=== PATIENT | male | born 1965 | race Caucasian/White ===

== ENCOUNTER 2020-07-27 17:22 | Emergency (ER) | payer BC ==
[~2020-07-27] VITALS: Ht 180.3 cm; Wt 72.7 kg
[2020-07-27 17:31] VITALS: BP 147/100
--- NOTE | 2020-07-27 17:58 | PHYS DOC ---
Past History Past Medical History: No Pertinent History Past Surgical History: No Surgical History Alcohol Use: None Adult General Chief Complaint Chief Complaint: TOE PROBLEM HPI HPI Patient is a 55-year-old male who presents with left big toe problem. Patient reports dropping household item on nail bed matrix of left big toe. He has no bony abnormalities or other complaints at this time besides mild hematoma in nailbed matrix. This is happened to his contralateral foot in the past and hematoma subsequently caused his toenail to fall off. Relatively asymptomatic patient here today requesting hold be drilled in toenail bed to evacuate hematoma and attempt to save toenail Review of Systems Review of Systems Fourteen body systems of review of systems have been reviewed. See HPI for pertinent positives and negative responses, other gann all other systems are negative, non-pertinent or non-contributory Allergies Allergies Allergies Coded Allergies Type Severity Reaction Last Updated Verified No Known Drug Allergies 07/27/20 No Physical Exam Physical Exam Constitutional: Well developed, well nourished, no acute distress, non-toxic appearance. HENT: Normocephalic, atraumatic, bilateral external ears normal, oropharynx moist, no oral exudates, nose normal. Eyes: PERRLA, EOMI, conjunctiva normal, no discharge. Neck: Normal range of motion, no tenderness, supple, no stridor. Cardiovascular: Heart rate regular, sinus rhythm, no murmurs rubs or gallops Lungs & Thorax: Bilateral breath sounds clear to auscultation Abdomen: Bowel sounds normal, soft, no tenderness, no masses, no pulsatile masses. Nonsurgical abdomen, no peritoneal signs Skin: Warm, dry, no erythema, no rash. Back: No tenderness, no CVA tenderness. Extremities: No tenderness, no cyanosis, no clubbing, ROM intact, no edema. No tenderness to medial or lateral malleoli or base of tibia and fibula, no base of fifth metatarsal pain, no navicular pain on palpation, nailbed matrix of left big toe with obvious ecchymoses and hematoma on proximal portion of nail bed matrix Neurologic: Alert and oriented X 3, grossly normal motor & sensory function, no focal deficits noted. Psychologic: Affect normal, judgement normal, mood normal. Current Patient Data Vital Signs Vital Signs Date Time Temp Pulse Resp B/P (MAP) Pulse Ox O2 Delivery O2 Flow Rate FiO2 07/27/20 17:31 98.0 74 18 147/100 (116) 100 EKG EKG [] Radiology/Procedures Radiology/Procedures [] Course & Med Decision Making Course & Med Decision Making Well-appearing ambulatory patient seen on ER arrival ABCs non-concerning Comprehensive history and physical exam obtained, no apparent emergent and/or surgical findings present I discussed with patient that our emergency department did not have the satisf actory tools to perform such nailbed matrix release. I also discussed this was not an emergency, that if hematoma expanded enough it would expel the nail, this is happened to him previously which patient was trying to prevent as he did not want to lose his toenail. I discussed with patient this was a naturally occurring process and not life-threatening. 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 Again, I stressed nonemergent findings, negative [place] ankle and knee, no role for imaging, continued care indicated at this time Ultimately, strict return precautions were discussed with good understanding by patient, all questions and concerns addressed prior to ER departure in stable condition Dragon Disclaimer Dragon Disclaimer This electronic medical record was generated, in whole or in part, using a voice recognition dictation system. Departure Departure: Impression: Primary Impression: Contusion of toenail of left foot Disposition: 01 HOME/RESIDENCE PRIOR TO ADM Condition: STABLE Referrals: HENRI NATION MD (PCP) Patient Instructions: Crush Injury, Fingers or Toes Justification of Admission: Justification of Admission: Justification of Admission Dx: N/A GRETEL MARQUEZ DO Jul 27, 2020 17:58
== END 2020-07-27 18:45 | disposition home or self-care (01) ==
LOC: ER 17:22
DX: S90.112A Contusion of left great toe without damage to nail, initial encounter (principal); W20.8XXA Other cause of strike by thrown, projected or falling object, initial encounter; Y93.89 Activity, other specified; Y92.89 Other specified places as the place of occurrence of the external cause; Y99.8 Other external cause status
CPT/HCPCS: 99281